=== PATIENT | female | born 1960 | race American Indian/Alaskan Native ===

== ENCOUNTER → 2016-12-20 | Emergency (ER) | payer MEDICARE, OTHER ==
[~2016-12-20] VITALS: Ht 154.9 cm; Wt 113.4 kg
[~2016-12-20] MED LIST: ALEVE220 M1 PO; CALCIUM + D SO1 EACH PO; CYCLOBENZAPRINE5 MG PO; GENERLAC10 GM/15 M PO; HYDROCHLOROTHIA25 MG PO; IRON159 MG PO; LORATADINE10 MG PO; MAGNESIUM CITR296 ML PO; MAGNESIUM100 MG PO; MAGNESIUM250 MG PO; NITROFURANTOIN100 M1 PO; NORCO 5-325 TA1 EACH PO; OMEPRAZOLE20 MG PO; OXYCODONE HCL5 MG PO; PEPCID COMPLET1 EACH PO; POTASSIUM CHLO10 MEQ PO; PROAIR HFA8.5 GM INH; REGLAN10 MG PO; REQUIP0.25 MG PO; ZOFRAN ODT4 MG SL
== END | disposition home or self-care (01) ==
LOC: ED 21:49
DX: S66.911A Strain of unspecified muscle, fascia and tendon at wrist and hand level, right hand, initial encounter (principal); S66.912A Strain of unspecified muscle, fascia and tendon at wrist and hand level, left hand, initial encounter; S00.83XA Contusion of other part of head, initial encounter; C55 Malignant neoplasm of uterus, part unspecified; J45.909 Unspecified asthma, uncomplicated; Z90.710 Acquired absence of both cervix and uterus; Z90.49 Acquired absence of other specified parts of digestive tract; Z88.8 Allergy status to other drugs, medicaments and biological substances; Z88.5 Allergy status to narcotic agent; Z79.899 Other long term (current) drug therapy; W01.198A Fall on same level from slipping, tripping and stumbling with subsequent striking against other object, initial encounter
CPT/HCPCS: 73110; 73610; 73630; 99283

== ENCOUNTER 2016-12-23 15:46 | Emergency (ER) | payer MEDICARE, OTHER ==
[~2016-12-23] VITALS: Ht 154.9 cm; Wt 113.4 kg
== END 2016-12-23 18:50 | disposition home or self-care (01) ==
LOC: ED 15:46
DX: S60.221A Contusion of right hand, initial encounter (principal); M25.552 Pain in left hip; M25.551 Pain in right hip; Z85.42 Personal history of malignant neoplasm of other parts of uterus; J45.909 Unspecified asthma, uncomplicated; Z88.5 Allergy status to narcotic agent; Z88.8 Allergy status to other drugs, medicaments and biological substances; Z79.899 Other long term (current) drug therapy; K74.60 Unspecified cirrhosis of liver; W01.0XXA Fall on same level from slipping, tripping and stumbling without subsequent striking against object, initial encounter
CPT/HCPCS: 72170; 73130; 99283